=== PATIENT | male | born 1975 | race Two or more races ===

== ENCOUNTER 2025-10-13 11:18 | Emergency (ER) | payer OTHER, MEDICAID ==
[~2025-10-13] VITALS: Ht 167.6 cm; Wt 92.0 kg
--- NOTE | 2025-10-13 11:29 | ECG ---
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
--- NOTE | 2025-10-13 12:05 | ED.PDOC ---
History of Present Illness HPI Comments 50 year old male presents to the ER with a prior medical history of hypertension in the chief complaint of chest pain. He reports having left-sided pressure- like chest pain associated with your 60/102 in triage. Patient notes that the chest pain started today. Denies any other symptoms at this time. Denies chills, fever, N/V/D, SOB. No other associated symptoms, modifiers, recent injuries or sick contacts present at this time. Chief Complaint: Chest Pain Time Seen by MD: 11:40 Reviewed Notes: Nurses Notes, Medications, Allergies Allergies: Coded Allergies: NO KNOWN ALLERGIES (Unverified , 10/13/25) Information Source: Patient Mode of Arrival: Ambulatory Severity: Moderate Timing: Hours Duration: Since onset, Hours Prehospital treatment: None Past Medical History PAST MEDICAL HISTORY: HTN Surgical History: Denies all surgeries Family History Family History: Reviewed,noncontributory to illness, Unknown Social History Smoker: Non-Smoker Alcohol: Denies ETOH Use Drugs: Denies Drug Use Lives In: Home Constitutional: denies: chills, diaphoresis, fatigue, fever, malaise, sweats, weakness, others EENTM: denies: blurred vision, double vision, ear bleeding, ear discharge, ear drainage, ear pain, ear ringing, eye pain, eye redness, hearing loss, mouth pain, mouth swelling, nasal discharge, nose bleeding, nose congestion, nose pain, photophobia, tearing, throat pain, throat swelling, voice changes, others Respiratory: denies: cough, hemoptysis, orthopnea, SOB at rest, shortness of breath, SOB with excertion, stridor, wheezing, others Cardiovascular: reports: chest pain, others (Elevated blood pressure); denies: dizzy spells, diaphoresis, Dyspnea on exertion, edema, irregular heart beat, left arm pain, lightheadedness, palpitations, PND, syncope Gastrointestinal: denies: abdomen distended, abdominal pain, blood streaked bowels, constipated, diarrhea, dysphagia, difficulty swallowing, hematemesis, melena, nausea, poor appetite, poor fluid intake, rectal bleeding, rectal pain, vomiting, others Genitourinary: denies: burning, dysuria, flank pain, frequency, hematuria, incontinence, penile discharge, penile sore, pain, testicle pain, testicle swelling, urgency, others Neurological: denies: dizziness, fainting, headache, left sided numbness, left sided weakness, numbness, paresthesia, pre-existing deficit, right sided numbness, right sided weakness, seizure, speech problems, tingling, tremors, weakness, others Musculoskeletal: denies: back pain, gout, joint pain, joint swelling, muscle pain, muscle stiffness, neck pain, others Integumetry: denies: bruises, change in color, change in hair/nails, dryness, laceration, lesions, lumps, rash, wounds, others Allergic/Immunocompromised: denies: Difficulty Healing, Frequent Infections, Hives, Itching, others Hematologic/Lymphatic: denies: anemia, blood clots, easy bleeding, easy bruising, swollen glands, others Endocrine: denies: excessive hunger, excessive sweating, excessive thirst, excessive urination, flushing, intolerance to cold, intolerance to heat, u nexplained weight gain, unexplained weight loss, others Psychiatric: denies: anxiety, bipolar disorder, depression, hopeless, panic disorder, schizophrenia, sleepless, suicidal, others All Other Systems: Reviewed and Negative Physical Exam General Appearance: No Apparent Distress, Normal HEENT: Normal ENT Inspection, Pharynx Normal, TMs Normal Neck: Full Range of Motion, Non-Tender, Normal, Normal Inspection Respiratory: Chest Non-Tender, Lungs Clear, No Accessory Muscle Use, No Respiratory Distress, Normal Breath Sounds Cardiovascular: No Edema, No JVD, No Murmur, No Gallop, Normal Peripheral P ulses, Regular Rate/Rhythm Breast Exam: Deferred Gastrointestinal: No Organomegaly, Non Tender, No Pulsatile Mass, Normal Bowel Sounds, Soft Genitalia: Deferred Pelvic: Deferred Rectal: Deferred Extremities: No calf tenderness, Normal capillary refill, Normal inspection, Normal range of motion, Non-tender, No pedal edema Musculoskeletal : Apperance: Normal Neurologic: Alert, baseball glove shaper II-XII nml as Tested, No Motor Deficits, Normal Affect, Normal Mood, No Sensory Deficits Cerebellar Function: Normal Reflexes: Normal Skin: Dry, Normal Color, Warm Lymphatic: No Adenopathy Was a procedure done? Was a procedure done?: No Differential Dx Considerations may include: ACS, CVA, viral syndrome, electrolyte MRI, infectious etiology X-Ray, Labs, Meds, VS Vital Signs Date Time Temp Pulse Resp B/P (MAP) Pulse Ox O2 Delivery O2 Flow Rate FiO2 10/13/25 14:12 65 10/13/25 13:58 98.4 77 16 159/89 (112) 100 98.4 10/13/25 12:15 71 10/13/25 11:32 Room Air* 0 21 10/13/25 11:24 78 10/13/25 11:24 98.2 88 17 160/102 97 98.2 Lab Test 10/13/25 13:05 10/13/25 12:41 10/13/25 11:22 Range/Units Troponin I High Sensitivity 4 4 </=54 ng/L Urine Color Colorless Yellow Urine Clarity Clear Clear Urine pH 6.0 5.0-9.0 Urine Specific Mayer 1.002 1.001-1.035 Urine Protein Negative Negative Urine Ketones Negative Negative Urine Blood Negative Negative /uL Urine Nitrite Negative Negative Urine Bilirubin Negative Negative Urine Urobilinogen Normal Negative mg/dL Urine Leukocyte Esterase Negative Negative /uL Urine RBC None seen 0 - 3 /hpf Urine Microscopic WBC < 1 0-3 /HPF Urine Squamous Epithelial Cells None seen <5 /hpf Urine Bacteria None seen None Seen /hpf Urine Glucose Normal Normal mg/dL White Blood Count 4.7 4.4-10.8 10^3/uL Red Blood Count 4.72 4.5-5.90 10^6/uL Hemoglobin 15.5 13.5-17.5 g/dL Hematocrit 43.4 41.0-53.0 % Mean Corpuscular Volume 92.1 80.0-100.0 fL Mean Corpuscular Hemoglobin 32.8 H 28.0-32.0 pg Mean Corpuscular Hemoglobin Concent 35.6 32.0-36.0 g/dL Red Cell Distribution Width 13.0 11.8-14.3 % Platelet Count 162 140-450 10^3/uL Mean Platelet Volume 8.2 6.9-10.8 fL Neutrophils (%) (Auto) 51.5 37.0-80.0 % Lymphocytes (%) (Auto) 35.4 10.0-50.0 % Monocytes (%) (Auto) 10.1 0.0-12.0 % Eosinophils (%) (Auto) 2.6 0.0-7.0 % Basophils (%) (Auto) 0.4 0.0-2.0 % Neutrophils # (Auto) 2.4 1.6-8.6 10 ^3/uL Lymphocytes # (Auto) 1.6 0.4-5.4 10 ^3/uL Monocytes # (Auto) 0.5 0-1.3 10 ^3/uL Eosinophils # (Auto) 0.1 0-0.8 10 ^3/uL Basophils # (Auto) 0 0-0.2 10 ^3/uL Nucleated Red Blood Cells 0.1 % Sodium Level 133 L 136-145 mmol/L Potassium Level 4.0 3.5-5.1 mmol/L Chloride Level 100 98-107 mmol/L Carbon Dioxide Level 21 20-31 mmol/L Anion Gap 12 5-15 Blood Urea Nitrogen 13 9-23 mg/dL Creatinine 0.85 0.700-1.30 mg/dL Glomerular Filtration Rate Calc 105 >90 mL/min BUN/Creatinine Ratio 15.3 10.0-20.0 Serum Glucose 108 H 74-106 mg/dL Calcium Level 9.5 8.7-10.4 mg/dL Current Medications Medications (Trade) Dose Ordered Sig/Angela Route Start Time Stop Time Status Last Admin Al Hydrox/Mg Hydrox/Simethicone (Maalox Plus) 15 ml ONCE ONCE PO 10/13/25 14:30 10/13/25 14:44 DC 10/13/25 14:54 Ondansetron HCl (Zofran Po) 4 mg ONCE ONCE PO 10/13/25 14:30 10/13/25 14:44 DC 10/13/25 14:53 Famotidine (Pepcid Tablet) 20 mg ONCE ONCE PO 10/13/25 14:30 10/13/25 14:44 DC 10/13/25 14:53 Time of 1ST Reevaluation: 12:10 Reevaluation 1ST: Unchanged Patient Education/Counseling: Diagnosis, Treatment, Prognosis Family Education/Counseling: No Family Present SEPSIS Sepsis Screen Date sepsis recognized/suspect: Oct 13, 2025 Time Sepsis recognized/suspect: 1123 Recent Procedure: No On Antibiotic Therapy: No Respiratory Rate >20: No Heart Rate >90: No Temp<36 C (96.8 F) or >38.3 C: No SBP <90 or MAP <65 mmHG: No New Acute Mental Status Change: No Is the patient on CPAP, BIPAP,: No Physician Orders Chest Portable (11/16/25 11:45) Vital Signs Date Time Temp Pulse Resp B/P (MAP) Pulse Ox O2 Delivery O2 Flow Rate FiO2 10/13/25 14:12 65 10/13/25 13:58 98.4 77 16 159/89 (112) 100 98.4 10/13/25 12:15 71 10/13/25 11:32 Room Air* 0 21 10/13/25 11:24 78 10/13/25 11:24 98.2 88 17 160/102 97 98.2 Laboratory Tests Test 10/13/25 11:22 White Blood Count 4.7 10^3/uL (4.4-10.8) Medications Medications Dose Ordered Sig/Angela Route Start Time Stop Time Status Last Admin Dose Admin Al Hydrox/Mg Hydrox/Simethicone 15 ml ONCE ONCE PO 10/13/25 14:30 10/13/25 14:44 DC 10/13/25 14:54 Famotidine 20 mg ONCE ONCE PO 10/13/25 14:30 10/13/25 14:44 DC 10/13/25 14:53 Ondansetron HCl 4 mg ONCE ONCE PO 10/13/25 14:30 10/13/25 14:44 DC 10/13/25 14:53 Departure 1 Departure Time of Disposition: 15:12 (Patient presented with chest pain that was concerning for possible STEMI, ACS, PE, Pneumonia, Muscle Strain, COPD, Dissection. Data: 1. I ordered and reviewed the result of at least 3 labs including a CBC, BMP, and Troponin. 2. I independently interpreted the following tests: EKG which shows normal sinus rhythm and Chest X-ray which shows a benign chest.Risk:This patient presented with a high risk of morbidity due to further diagnostic testing or treatment and may suffer from an acute cardiac or respiratory disorder. After review of all the data patient is unlikely to have a pe , dissection, and is low risk for acs. Patient is stable at this time.Workup so far is benign and patient will be discharged with outpatient followup. ) Impression: Primary Impression: Acute chest pain Disposition: HOME / SELF CARE / HOMELESS Condition: Stable Additional Instructions: You presented today with chest pain. Your workup today was benign including labs, troponin, EKG, chest x-ray. Your pain may be from musculoskeletal strain, acid reflux, anxiety, or many other factors. It is important to follow up with your regular doctor within 1 week. If your symptoms worsen or you have any other concerns please return to the emergency room. Discharged With: Self Critical Care Note Critical Care Time?: No Stability Stability form required: No I personally scribed for CARLTON ALCALA MD ([email or web address]) on 10/13/25 at 12:05. Electronically submitted by Nemesio Garcia ([email or web address]). CARLTON ALCALA MD Oct 13, 2025 12:05
--- NOTE | 2025-10-13 12:16 | ECG ---
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
--- NOTE | 2025-10-13 12:55 | DVH ---
CHEST RADIOGRAPH Indication: cp Technique: Single frontal view of the chest was obtained COMPARISON: None FINDINGS: Lines and Tubes: None Lungs: Clear Pleura: No effusion. No pneumothorax. Cardiomediastinal contours: Unremarkable Bones: Unremarkable IMPRESSION: No acute disease.
[2025-10-13 13:01] LABS: Hematocrit 43.4 % (41.0-53.0); Hemoglobin 15.5 g/dL (13.5-17.5); Mean Corpuscular Hemoglobin 32.8 pg (28.0-32.0); Mean Corpuscular Volume 92.1 fL (80.0-100.0); Nucleated Red Blood Cells % 0.1 %
[2025-10-13 13:09] LABS: Chloride 100 mmol/L (98-107); Potassium 4.0 mmol/L (3.5-5.1); Sodium 133 mmol/L (136-145)
[2025-10-13 13:10] LABS: Anion Gap 12 (5-15); Calcium 9.5 mg/dL (8.7-10.4); Carbon Dioxide 21 mmol/L (20-31)
[2025-10-13 13:12] LABS: Urine Protein, UAD Negative (Negative)
[2025-10-13 13:15] LABS: BUN/Creatinine Ratio 15.3 (10.0-20.0); Blood Urea Nitrogen 13 mg/dL (9-23)
[2025-10-13 13:16] LABS: Glucose 108 mg/dL (74-106)
--- NOTE | 2025-10-13 14:15 | ECG ---
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
[2025-10-13] MEDS: FAMOTIDINE 20 MG TAB PO ONE (14:53)
[2025-10-13] MEDS: ONDANSETRON ODT 4 MG TAB PO ONE (14:53)
[2025-10-13] MEDS: MAALOX PLUS or MAALOX 30 ML PO ONE (14:54)
[2025-10-13 15:42] VITALS: BP 148/70; PULSE 100; RESP 18; TEMP 98.2; O2SAT 98
== END 2025-10-13 15:45 | disposition home or self-care (01) ==
LOC: ER 11:18
DX: R07.89 Other chest pain (principal); I10 Essential (primary) hypertension
CPT/HCPCS: 36415; 71045; 80048; 81001; 84484; 85025; 93005; 99285; Q0162